=== PATIENT | male | born 1995 | race Caucasian/White ===

== ENCOUNTER 2020-08-10 02:52 | Emergency (ER) | payer MEDICAID ==
[~2020-08-10] VITALS: Ht 170.2 cm; Wt 64.0 kg
[2020-08-10 02:58] VITALS: BP 129/80
[2020-08-10] MEDS ORDERED: IBUPROFEN 600MG TABLET PO NR (03:30)
== END 2020-08-10 03:34 | disposition home or self-care (01) ==
LOC: ER 02:59
DX: H66.91 Otitis media, unspecified, right ear (principal); R50.9 Fever, unspecified; R09.89 Other specified symptoms and signs involving the circulatory and respiratory systems
CPT/HCPCS: 99283